=== PATIENT | female | born 1985 | race Two or more races ===

== ENCOUNTER 2021-02-08 01:15 | Emergency (ER) | payer MEDICAID ==
--- NOTE | 2021-02-08 01:30 | EDM.PDOC ---
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 All 3 are in the department at this time because of car monoxide monitors going off in their apartment dwelling starting about 1016 hrs. and gradually intensifying up until midnight when they left the dwelling and came to the ED. She smokes 1 or 2 cigarettes/day. At present she has got a constant throbbing pulsating headache with associated nausea without vomiting. The source of carbon oxide has not yet been identified. 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 and continue to go off up until 1215 hrs. when they elected to leave their apartment.). Denies: Activity, Exercise, Lifting, Sick Contact, Trauma Associated Symptoms: Reports: Headaches, Loss of Appetite, Malaise, Jd sea/Vomiting. Denies: Confusion, Chest Pain, Cough, cough w sputum, Diaphoresis, Fever/Chills, Rash, Seizure, Shortness of Breath (Is without vomiting), Syncope Treatments PRESIDENT AND CHIEF COMMERCIAL OFFICER: Reports: Other (see below) (None.) Headache Pain Score (Numeric/FACES): 10 - Related Data Allergies Allergy/AdvReac Type Severity Reaction Status Date / Time No Known Allergies Allergy Verified 02/08/21 01:31 Home Meds: Home Meds . [No Known Home Meds] 02/08/21 [History] Past Medical History : 1 Para: 1 Social & Family History - Living Situation & Occupation Living situation: Reports: Single, with Family ED ROS GENERAL - Review of Systems Review Of Systems: See Below Constitutional: Reports: Malaise, Weakness, Decreased Appetite. Denies: Fever, Chills HEENT: Reports: No Symptoms Respiratory: Reports: No Symptoms Cardiovascular: Reports: No Symptoms Endocrine: Reports: No Symptoms GI/Abdominal: Reports: Nausea. Denies: Vomiting : Reports: No Symptoms Musculoskeletal: Reports: No Symptoms Skin: Reports: No Symptoms Neurological: Reports: Headache Psychiatric: Reports: No Symptoms (Lysed constant throbbing headache) Hematologic/Lymphatic: Reports: No Symptoms Immunologic: Reports: No Symptoms - Physical Exam Exam: See Below Exam Limited By: No Limitations General Appearance: Alert, WD/WN, No Apparent Distress, Other (Temperature is 36.4. Heart rate 86 and sinus respiratory is 15 with O2 sats of 97% room air BP 08/09/1995.) Eye Exam: Bilateral Eye: PERRL Throat/Mouth: Normal Inspection, Normal Lips, Normal Teeth, Normal Oropharynx Head Exam: Atraumatic, Normocephalic Neck: Normal Inspection, Supple, Non-Tender, Full Range of Motion. No: Lymphadenopathy (L), Lymphadenopathy (R) Respiratory/Chest: No Respiratory Distress, Lungs Clear, Normal Breath Sounds, No Accessory Muscle Use Cardiovascular: Normal Peripheral Pulses, Regular Rate, Rhythm, No Edema, No Gallop, No Murmur, No Rub GI/Abdominal: Normal Bowel Sounds, Soft, Non-Tender, No Abnormal Bruit, No Mass Rectal (Female) Exam: Normal Exam Neuro Exam (Abbreviated): Alert, Oriented, CN II-XII Intact, Normal Cognition, Normal Gait Back Exam: Normal Inspection, Full Range of Motion. No: CVA Tenderness (L), CVA Tenderness (R) Extremities: Normal Inspection, Normal Range of Motion, Non-Tender, No Pedal Edema Psychiatric: Normal Affect, Normal Mood, Anxious Skin Exam: Warm (Job anxious), Dry, Intact, Normal Color, No Rash Course - Vital Signs Last Recorded V/S: Last Vital Signs Temp 36.4 C 02/08/21 01:31 Pulse 86 02/08/21 01:31 Resp 15 02/08/21 01:31 BP 122/96 H 02/08/21 01:31 Pulse Ox 97 02/08/21 01:31 - Orders/Labs/Meds Labs: Laboratory Tests 02/08/21 Range/Units 01:32 ABG Carboxyhemoglobin 1.9 H (0.00-1.50) %THgb - Radiology Interpretation Free Text/Narrative:: 35-year-old female presents to the ED with potential carbon oxide exposure. All of their phones were going off in their apartment indicating that there was high levels of carbon oxide in their apartment dwelling. The does not believe that there was anything plugged and that would give off carbon oxide such as a gas stove and the furnace is not on. First alert came at around 2216 hrs. today. Double alerts came from different monitors within their apartment indicating that there was exposure to carbon monoxide. - Re-Assessments/Exams Free Text/Narrative Re-Assessment/Exam: 02/08/21 01:54 carboxyhemoglobin levels reported to be 1.9 which is well within the normal range for a mild smoker. She smokes apparently 1 to 5 cigarettes [address]. Reassured at this time that no significant carbon oxide exposure has been identified and there is therefore no treatment with oxygen. More findings were found in her common-law who had a level of 4.9. Departure - Departure Time of Disposition: 02:22 Disposition: Home, Self-Care 01 Condition: Fair Clinical Impression: Exposure to carbon monoxide - Discharge Information *PRESCRIPTION DRUG MONITORING PROGRAM REVIEWED*: Not Applicable *COPY OF PRESCRIPTION DRUG MONITORING REPORT IN PATIENT GONZÁLEZ: Not Applicable Instructions: Carbon Monoxide Poisoning, [id number] Referrals: Kristen Verdin MD [Primary Care Provider] - Forms: ED Department Discharge Additional Instructions: Evaluation in the emergency room tonight in regards to possible carbon oxide exposure in your apartment home tonight. All of your carbon monoxide monitors were going off indicating high levels of potential toxic levels of carbon oxide in your apartment for unknown reason. Your carboxyhemoglobin level done in the emergency room was 1.9 which is considered to be within normal limits. However I will have the fire department meet you at your apartment building to further check for a potential source of carbon oxide that is seeping into your apartment and potentially making you ill and making sure that is safe for you to return to that dwelling tonight. Sepsis Event Note (ED) - Focused Exam Vital Signs: Vital Signs Temp Pulse Resp BP Pulse Ox 02/08/21 01:31 36.4 C 86 15 122/96 H 97
== END 2021-02-08 02:30 | disposition home or self-care (01) ==
LOC: EDSEX 01:15 → JD.ED 01:15
DX: Z77.098 Contact with and (suspected) exposure to other hazardous, chiefly nonmedicinal, chemicals (principal)
CPT/HCPCS: 82375; 99282; 99284